=== PATIENT | male | born 1955 | race Caucasian/White ===

== ENCOUNTER 2017-01-04 18:19 | Emergency (ER) | END 2017-01-05 | disposition home or self-care (01) | DX: S80.811A Abrasion, right lower leg, initial encounter (principal); L03.115 Cellulitis of right lower limb; E11.9 Type 2 diabetes mellitus without complications; I10 Essential (primary) hypertension; X58.XXXA Exposure to other specified factors, initial encounter; Y92.9 Unspecified place or not applicable; Z79.82 Long term (current) use of aspirin; Z87.891 Personal history of nicotine dependence; Z23 Encounter for immunization | CPT/HCPCS: 36415; 80048; 85025; 87040; 90471; 90715; 96374; J3370; J7030; Z7502; Z7610 ==

== ENCOUNTER 2017-01-16 20:35 | Emergency (ER) | payer BC ==
[~2017-01-16] VITALS: Ht 165.1 cm; Wt 63.2 kg
[~2017-01-16 20:35] MED LIST: ACET-514 PO; AMLO5TAB4 PO; ASPI81TA3 PO; ATOR20TA38 PO; CLIN-73 PO; DIVA500T7 PO; MELO7.5O2 PO; NAPR-688 PO; PALI117D IM; SULF1TAB31 PO
[2017-01-16 20:39] VITALS: Ht 165.1 cm; Wt 63.2 kg
[2017-01-16 21:51] LABS: BASOPHILS % 0.4 % (0.0-2.0); EOSINOPHILS # 0.5 10^3/ul (0.0-0.5); EOSINOPHILS % 6.3 % (0.0-7.0); HEMATOCRIT 38.2 % (42.0-52.0); HEMOGLOBIN 12.4 g/dl (14.0-18.0); LYMPHOCYTES # 2.3 10^3/ul (0.8-2.9); LYMPHOCYTES % 26.6 % (15.0-51.0); MEAN CORPUSCULAR HEMOGLOBIN 28.6 pg (29.0-33.0); MEAN CORPUSCULAR HGB CONC 32.5 g/dl (32.0-37.0); MONOCYTES % 12.3 % (0.0-11.0); NEUTROPHIL # 4.6 10^3/ul (1.6-7.5); NEUTROPHILS % 54.2 % (39.0-77.0); PLATELET COUNT 242 10^3/UL (140-415); RED BLOOD COUNT 4.34 10^6/ul (4.70-6.10); RED CELL DISTRIBUTION WIDTH 13.6 % (11.5-14.5); WHITE BLOOD COUNT 8.5 10^3/ul (4.8-10.8)
[2017-01-16 22:09] LABS: CALCIUM 9.2 mg/dl (8.4-10.2); CREATININE 1.14 mg/dl (0.61-1.24); POTASSIUM 3.6 mmol/L (3.5-5.1)
[2017-01-16] MEDS ORDERED: CEPH500C PO (23:09)
[2017-01-16] MEDS ORDERED: SULF1TAB31 PO (23:09)
--- NOTE | 2017-01-16 23:15 | ERD ---
ER Documentation Chief Complaint Chief Complaint [facility] from [facility], sent for right LE leg ulcer HPI This 61-year-old male was sent to long-term facility for concerns of infection to his right lower leg ulcer. He has diabetes. He has had this ulcer for some time and has not noticed any significant change.. He denies any pain. Denies any fevers or chills. ROS All systems reviewed and are negative except as per history of present illness. Medications Home Meds Active Scripts Cephalexin* (Cephalexin*) 500 Mg Capsule, 500 MG PO Q8, #21 CAP Prov:HU CUEVAS DO 01/16/17 Sulfamethoxazole/Trimethoprim* (Bactrim Ds* Tablet) 1 Each Tablet, 1 TAB PO BID , #20 TAB Prov:HU CUEVAS DO 01/16/17 Clindamycin Hcl* (Clindamycin Hcl*) 300 Mg Capsule, 300 MG PO TID for 10 Days, CAP Prov:HU CUEVAS DO 01/04/17 Naproxen* (Naproxen*) 500 Mg Tablet, 500 MG PO BID Y for PAIN, #20 TAB Prov:HU CUEVAS DO 01/04/17 Sulfamethoxazole/Trimethoprim* (Bactrim Ds* Tablet) 1 Each Tablet, 1 TAB PO BID , #20 TAB Prov:HU CUEVAS DO 01/04/17 Reported Medications Paliperidone Palmitate (Invega Sustenna) 117 Mg/0.75 Ml Disp.syrin, MG IM Q MONTHLY, SYR 04/02/15 Acetaminophen (Acetaminophen) 325 Mg Tablet, 325 MG PO Q4 for PAIN, TAB 04/02/15 Meloxicam* (Mobic*) 7.5 Mg/5 Ml Oral.susp, 7.5 MG PO BID, #150 ML 04/02/15 Divalproex Sodium* (Depakote ER*) 500 Mg Tabsr, 500 MG PO Q12, #30 TAB.SA 04/02/15 Atorvastatin Calcium* (Atorvastatin Calcium*) 20 Mg Tablet, 20 MG PO QHS, #30 TAB 04/02/15 Aspirin* (Aspirin* Chew) 81 Mg Tab.chew, 81 MG PO DAILY, TAB.CHEW 04/02/15 Amlodipine Besylate* (Norvasc*) 5 Mg Tablet, 5 MG PO DAILY, TAB 04/02/15 Allergies Allergies: Coded Allergies: sulfamethoxazole (Verified Allergy, Unknown, 04/02/15) trimethoprim (Verified Allergy, Unknown, 04/02/15) PMhx/Soc Medical and Surgical Hx: pt denies Surgical Hx History of Surgery: No Anesthesia Reaction: No Hx Neurological Disorder: Yes (Stroke in February 2015) Hx Respiratory Disorders: No Hx Cardiac Disorders: Yes (HTN) Hx Psychiatric Problems: Yes (Schizophrenia) Hx Miscellaneous Medical Probl: Yes (stroke Feb 2015,HTN,urinary incontinence, RA, OA, migraines) Hx Alcohol Use: No Hx Substance Use: Yes (Marijuana use) Hx Tobacco Use: Yes (Quit February 2015 when patient had stroke) Smoking Status: Current every day smoker Physical Exam Vitals Vital Signs Date Time Temp Pulse Resp B/P Pulse Ox O2 Delivery O2 Flow Rate FiO2 01/16/17 20:39 98.3 89 18 112/57 95 Physical Exam Const: [] No distress Head: Atraumatic Eyes: Normal Conjunctiva ENT: Normal External Ears, Nose and Mouth. Neck: Full range of motion..~ No meningismus. Resp: Clear to auscultation bilaterally Cardio: Regular rate and rhythm, no murmurs Back: No midline or flank tenderness Ext: No cyanosis, capillary refill intact. Right lateral lower leg with very superficial ulceration as well as a pinkish hue to the skin in approximately 12 x 6 cm area. There is a clear ointment covering this entire leg. Very mild edema. No calor, no tenderness. Neur: Awake and alert and oriented 3, no focal deficits Psych: Normal Mood and Affect Result Diagram: 01/16/17212901/16/172129 Results 24 hrs Laboratory Tests Test 01/16/17 21:30 White Blood Count 8.510^3/ul Red Blood Count 4.3410^6/ul Hemoglobin 12.4g/dl Hematocrit 38.2% Mean Corpuscular Volume 88.0fl Mean Corpuscular Hemoglobin 28.6pg Mean Corpuscular Hemoglobin Concent 32.5g/dl Red Cell Distribution Width 13.6% Platelet Count 69575^3/UL Mean Platelet Volume 11.0fl Neutrophils % 54.2% Lymphocytes % 26.6% Monocytes % 12.3% Eosinophils % 6.3% Basophils % 0.4% Nucleated Red Blood Cells % 0.0/100WBC Neutrophils # 4.610^3/ul Lymphocytes # 2.310^3/ul Monocytes # 1.010^3/ul Eosinophils # 0.510^3/ul Basophils # 0.010^3/ul Nucleated Red Blood Cells # 0.010^3/ul Sodium Level 140mmol/L Potassium Level 3.6mmol/L Chloride Level 100mmol/L Carbon Dioxide Level 31mmol/L Anion Gap 13 Blood Urea Nitrogen 25mg/dl Creatinine 1.14mg/dl Glucose Level 112mg/dl Calcium Level 9.2mg/dl Procedures/MDM Possible early mild cellulitis left lower leg. A diabetic male is better to treated before becomes a serious limb threatening infection or turns to osteomyelitis or sepsis. Patient also has mild normocytic anemia without symptoms. No elevated white blood cell count or signs of systemic infection. This is a mild infection as patient has no calor or tenderness. Going to discharge him back to especially with Bactrim and Keflex as well as primary care follow-up in 2-3 days. I see no indication for acute admission or IV antibiotics currently. Departure Diagnosis: Primary Impression: Cellulitis of left lower leg Additional Impression: Normocytic anemia Condition: Stable Patient Instructions: Cellulitis Additional Instructions: Call your primary care doctor TOMORROW for an appointment during the next 2-3 days.See the doctor sooner or return here if your condition worsens before your appointment time. HU CUEVAS DO Jan 16, 2017 23:15
[2017-01-16 23:42] VITALS: BP 150/71; PULSE 85; RESP 18; TEMP 98.6
== END 2017-01-16 23:48 | disposition home or self-care (01) ==
LOC: E/R 20:35
DX: L03.116 Cellulitis of left lower limb (principal); D64.9 Anemia, unspecified; E11.9 Type 2 diabetes mellitus without complications; I10 Essential (primary) hypertension; F17.210 Nicotine dependence, cigarettes, uncomplicated; Z79.82 Long term (current) use of aspirin
CPT/HCPCS: 36415; 80048; 85025; Z7502; 99284